=== PATIENT | male | born 1985 | race Caucasian/White ===

== ENCOUNTER 2018-02-23 22:05 | Emergency (ER) | payer MEDICARE, MEDICAID ==
[~2018-02-23] VITALS: Ht 172.7 cm; Wt 172.0 kg
[2018-02-24 03:38] VITALS: BP 160/85
[2018-02-24] MEDS ORDERED: OXCARBAZEPINE 300MG TABLET PO SCH (09:00)
== END 2018-02-24 03:42 | disposition home or self-care (01) ==
LOC: ER 22:29
DX: G40.909 Epilepsy, unspecified, not intractable, without status epilepticus (principal); S06.0X0A Concussion without loss of consciousness, initial encounter; F99 Mental disorder, not otherwise specified; I69.351 Hemiplegia and hemiparesis following cerebral infarction affecting right dominant side; Z91.14 Patient's other noncompliance with medication regimen; W01.0XXA Fall on same level from slipping, tripping and stumbling without subsequent striking against object, initial encounter; Y93.89 Activity, other specified; Y92.89 Other specified places as the place of occurrence of the external cause
CPT/HCPCS: 36415; 70450; 82947; 82962; 99284

== ENCOUNTER 2018-02-28 19:17 | Emergency (ER) | payer MEDICARE, MEDICAID ==
[~2018-02-28] VITALS: Ht 182.9 cm; Wt 158.0 kg
[2018-02-28] MEDS ORDERED: IBUPROFEN 600MG TABLET PO STA (19:30)
[2018-02-28 20:47] LABS: BASOPHILS % 0.6 % (0.0-2.0); HEMATOCRIT. 42.5 % (42.0-52.0); HEMOGLOBIN. 14.6 g/dL (14.0-18.0); LYMPHOCYTES % 15.7 % (20.0-50.0); MEAN CORPUSCULAR HEMOGLOBIN 28.6 pg (28.0-32.0); MEAN CORPUSCULAR VOLUME 83.4 fL (80.0-94.0); MEAN PLATELET VOLUME 8.1 fl (7.4-10.4); MONOCYTES % 6.1 % (2.0-8.0); NEUTROPHILS % 75.6 % (40.0-76.0); PLATELET 273 x1000/uL (130-400); RED CELL DISTRIBUTION WIDTH 14.6 % (11.6-14.6)
[2018-02-28 20:54] LABS: PROTHROMBIN TIME 10.7 sec (9.4-11.6)
[2018-02-28 22:10] VITALS: BP 157/79
[2018-02-28 22:13] LABS: CHLORIDE 107 mEq/L (98-107)
[2018-02-28 22:25] LABS: ETHANOL BLOOD < 10 mg/dL
== END 2018-02-28 22:45 | disposition left against medical advice (07) ==
LOC: ER 19:32
DX: R51 Headache (principal); F84.0 Autistic disorder; F17.200 Nicotine dependence, unspecified, uncomplicated
CPT/HCPCS: 36415; 80053; 80307; 80329; 85025; 85610; 99284; G0482; 70450

== ENCOUNTER 2018-03-01 01:28 | Emergency (ER) | payer MEDICARE, MEDICAID ==
[~2018-03-01] VITALS: Ht 188 cm; Wt 159.0 kg
[2018-03-01] MEDS ORDERED: KETOROLAC 30MG/ML VIAL IV STA (06:48)
[2018-03-01 07:13] LABS: BASOPHILS % 0.7 % (0.0-2.0); EOSINOPHILS % 2.4 % (0.0-5.0); HEMATOCRIT. 43.3 % (42.0-52.0); HEMOGLOBIN. 14.5 g/dL (14.0-18.0); LYMPHOCYTES % 12.4 % (20.0-50.0); MEAN CORPUSCULAR HEMOGLOBIN 27.8 pg (28.0-32.0); MEAN CORPUSCULAR VOLUME 83.2 fL (80.0-94.0); MEAN PLATELET VOLUME 8.2 fl (7.4-10.4); MONOCYTES % 6.9 % (2.0-8.0); NEUTROPHILS % 77.6 % (40.0-76.0); PLATELET 251 x1000/uL (130-400); RED BLOOD CELL COUNT 5.21 mill/uL (4.7-6.1); RED CELL DISTRIBUTION WIDTH 14.5 % (11.6-14.6)
[2018-03-01 07:19] LABS: CHLORIDE 106 mEq/L (98-107)
[2018-03-01 07:23] LABS: ETHANOL BLOOD < 10 mg/dL
[2018-03-01 07:31] VITALS: BP 137/75
== END 2018-03-01 08:08 | disposition home or self-care (01) ==
LOC: ER 01:53
DX: R51 Headache (principal); G40.909 Epilepsy, unspecified, not intractable, without status epilepticus; F84.0 Autistic disorder; F17.200 Nicotine dependence, unspecified, uncomplicated; Z86.73 Personal history of transient ischemic attack (TIA), and cerebral infarction without residual deficits; Z88.8 Allergy status to other drugs, medicaments and biological substances
CPT/HCPCS: 36415; 71045; 80053; 85025; 96374; 99285; G0482; J1885

== ENCOUNTER 2018-03-14 19:50 | Emergency (ER) | payer MEDICARE, MEDICAID ==
[~2018-03-14] VITALS: Ht 188 cm; Wt 136.4 kg
[2018-03-14 21:50] VITALS: BP 136/88
== END 2018-03-14 22:35 | disposition home or self-care (01) ==
LOC: ER 20:14
DX: T83.9XXA Unspecified complication of genitourinary prosthetic device, implant and graft, initial encounter (principal); R32 Unspecified urinary incontinence; F20.9 Schizophrenia, unspecified; I69.351 Hemiplegia and hemiparesis following cerebral infarction affecting right dominant side; Y92.89 Other specified places as the place of occurrence of the external cause; Z96.659 Presence of unspecified artificial knee joint; Z98.890 Other specified postprocedural states; Z88.8 Allergy status to other drugs, medicaments and biological substances
CPT/HCPCS: 51702; 99284; A4315